=== PATIENT | female | born 1965 ===

== ENCOUNTER 2019-11-25 20:22 | Outpatient (REF) | payer BC, SELFPAY ==
--- NOTE | 2019-11-25 08:30 | PAPFT_PTH ---
PATIENT: Rita Driver LOC: [facility] U#:[id number] AGE/SX: 54/F ROOM: RE11/25/[address]: Roshan Hawk : 1965 BED: DIS: 11/25/2019 SPEC #: [id number] RECD: 11/29/19 13:01 STATUS: SUMANTH FOX #: [id number] SHEYLA: 11/25/19 08:[address]: Roshan Hawk DEPT: [facility] Cytology RECD BY: Berenice Bailon Tissues: 1 - CX/ENDOCX FOR PAP SMEARS Procedures: PAP THIN PREP/[facility] Screening HPV DNA PROBE Comments: [id number]
[2019-11-27 08:48] LABS: BUN 14 mg/dL (7-18); CREATININE 0.66 mg/dL (0.55-1.02); Calcium 9.7 mg/dL (8.5-10.1); Cholesterol 230 mg/dL (<200); Glucose 55 mg/dL (74-106); Triglyceride 124 mg/dL (<150)
[2019-11-27 08:49] LABS: Anion Gap 9.6 mmol/L (3-11); CO2 29.4 mmol/L (21.0-32.0); Calculated LDL 140 mg/dL (<100); Chloride 103 mmol/L (98-107); HDL Cholesterol 66 mg/dL (40-60); Potassium 4.4 mmol/L (3.5-5.1); Sodium 142 mmol/L (136-145)
== END 2019-11-25 20:42 ==
LOC: NCHCN 20:22
PROVIDERS: PCP Family Medicine; Visit Provider Family Medicine
DX: Z00.00 Encounter for general adult medical examination without abnormal findings (principal); Z13.220 Encounter for screening for lipoid disorders; Z12.4 Encounter for screening for malignant neoplasm of cervix; Z11.51 Encounter for screening for human papillomavirus (HPV)
CPT/HCPCS: 80048; 80061; 88142; 87624

== ENCOUNTER 2019-12-14 22:02 | Outpatient (REF) | payer BC, SELFPAY | END 2019-12-14 22:22 | LOC: NCHCN 22:02 | PROVIDERS: PCP Family Medicine; Visit Provider Family Medicine | DX: Z00.00 Encounter for general adult medical examination without abnormal findings (principal); Z13.29 Encounter for screening for other suspected endocrine disorder | CPT/HCPCS: 84443 ==

== ENCOUNTER 2022-10-24 11:47 | Outpatient (REF) | payer OTHER, SELFPAY ==
[2022-10-24 14:25] LABS: Anion Gap 4.8 mmol/L (3-11); BUN 11 mg/dL (7-18); CO2 32.2 mmol/L (21.0-32.0); CREATININE 0.8 mg/dL (0.55-1.02); Calcium 9.8 mg/dL (8.5-10.1); Chloride 103 mmol/L (98-107); Estimated GFR 85.89 (mL/min/1.73m2); Glucose 102 mg/dL (74-106); Potassium 4.6 mmol/L (3.5-5.1); Sodium 140 mmol/L (136-145)
[2022-10-24 14:38] LABS: Calculated LDL 114 mg/dL (<100); Cholesterol 225 mg/dL (<200); HDL Cholesterol 95 mg/dL (40-60); Triglyceride 82 mg/dL (<150)
[2022-10-24 16:03] LABS: Vitamin D 25 Total 35.5 ng/mL (30-100)
== END 2022-10-24 11:48 | disposition home or self-care (01) ==
LOC: NCHCN 11:47
PROVIDERS: PCP Family Medicine; Visit Provider Family Medicine
DX: Z00.00 Encounter for general adult medical examination without abnormal findings (principal)
CPT/HCPCS: 80048; 80061; 82306

== ENCOUNTER 2024-01-21 12:46 | Outpatient (REF) | payer OTHER, SELFPAY ==
--- OUTSIDE RECORDS SUMMARY | 2024-01-21 12:50 | XMS_ITS ---
Author Organization Unknown Address [address] [place] [phone] Phone Care Team Providers Care Oak Tanner Name Role Phone NAOMIE Viera Attending Unavailable DEON Stewart Primary Unavailable Social History Type Status Start Date End Date Code Code Syst em Smoking History Never smoker (Never Smoked) 153033375 SNOMED CT Sex Female Hospital Discharge Instructions Should you have any questions prior to discharge, please contact a member of your healthcare team. If you have left the hospital and have any questions, please contact your primary care physician. Reason For Referral No Data Found Allergies and Adverse Reactions Allergy Substance Reaction Severity Start Date Concern Status Co de Code System PENICILLIN Active 52688 RxNorm Plan of Treatment Pre-Op Covid-19 Testing 03/21/2020 Encounters Encounter Diagnosis Start Date Code Code Sys tem Plantar fasciitis 12/04/2021653868413 SNOMED-CT Personal Care Team Section Performer Name Performer Role Active Date Inactive Da te
--- OUTSIDE RECORDS SUMMARY | 2024-01-21 12:50 | XMS_ITS ---
Author Organization Unknown Address [address] [place] [phone] Phone Care Team Providers Care Health Safety Specialist Name Role Phone KHOA Sierra Attending Unavailable DEON Stewart Primary Unavailable Social History Type Status Start Date End Date Code Code Syst em Smoking History Never smoker (Never Smoked) [id number] SNOMED CT Sex Female Hospital Discharge Instructions Should you have any questions prior to discharge, please contact a member of your healthcare team. If you have left the hospital and have any questions, please contact your primary care physician. Reason For Referral No Data Found Allergies and Adverse Reactions Allergy Substance Reaction Severity Start Date Concern Status Co de Code System PENICILLIN Active 13950 RxNorm Plan of Treatment Pre-Op Covid-19 Testing 03/21/2020 Encounters Encounter Diagnosis Start Date Code Code Sys tem 03/31/2023 [id number] SNOMED-CT Personal Care Team Section Performer Name Performer Role Active Date Inactive Da te
[2024-01-21 22:11] LABS: Calculated LDL 104 mg/dL (<100); Cholesterol 215 mg/dL (<200); HDL Cholesterol 93 mg/dL (40-60); TSH (W/Ref FT4) 0.98 uIU/mL (0.36-3.74); Triglyceride 94 mg/dL (<150)
== END 2024-01-21 12:47 | disposition home or self-care (01) ==
LOC: NCHCN 12:46
PROVIDERS: PCP Family Medicine; Visit Provider Family Medicine
DX: Z00.00 Encounter for general adult medical examination without abnormal findings (principal); Z13.220 Encounter for screening for lipoid disorders; Z13.29 Encounter for screening for other suspected endocrine disorder
CPT/HCPCS: 80061; 84443

== ENCOUNTER 2025-01-20 11:46 | Outpatient (REF) | payer OTHER, SELFPAY ==
--- NOTE | 2025-01-20 09:45 | PAPFT_PTH ---
PATIENT: Rita Driver LOC: [facility]#:[id number] AGE/SX: 60/F ROOM: RE01/20/[address]: Roshan Hawk : 1965 BED: DIS: 01/20/2025 SPEC #: [id number] RECD: 01/20/25 17:47 STATUS: SUMANTH REJassi #: [id number] SHEYLA: 01/20/25 09:[address]: Roshan Hawk [facility] Cytology RECD BY: Berenice Bailon Tissues: 1 - CX/ENDOCX FOR PAP SMEARS Procedures: PAP THIN PREP/[facility] Screening HPV DNA PROBE Comments: [id number] (HPV 16 & 18/45)
== END 2025-01-20 11:47 | disposition home or self-care (01) ==
LOC: NCHCN 11:46
PROVIDERS: PCP Family Medicine; Visit Provider Family Medicine
DX: Z12.4 Encounter for screening for malignant neoplasm of cervix (principal); Z00.00 Encounter for general adult medical examination without abnormal findings
CPT/HCPCS: 88142; 87624